=== PATIENT | male | born 1980 | race Caucasian/White ===

== ENCOUNTER 2022-05-02 13:21 | Emergency (ER) | payer SELFPAY ==
--- NOTE | 2022-05-02 15:41 | XRay Report ---
LEFT HAND 3 VIEW(S) INDICATION / CLINICAL INFORMATION: hand injury COMPARISON: 11/12/2015 FINDINGS: BONES / JOINT(S): There is fracture through the distal tuft of the distal phalanx of the left little finger. No significant arthritis. 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 SOFT TISSUES: There is extensive soft tissue injury at the distal left little finger with soft tissue gas and soft tissue swelling. No radiodense foreign bodies are seen. ADDITIONAL FINDINGS: None. IMPRESSION: 1. Laceration/penetrating trauma to the distal left little finger with associated fracture through th e tip of the distal phalanx and marked soft tissue irregularity. Signer Name: Norman Best MD Signed: 05/02/2022 3:37 PM Workstation Name: [id number]
[2022-05-02] MEDS ORDERED: ONDANSETRON 4 MG ODT TAB PO ONE (17:25)
[2022-05-02] MEDS ORDERED: SODIUM CHLORIDE 0.9% 500 ML 500 ML IV ONE (17:25)
[2022-05-02] MEDS ORDERED: HYDROcodone/ACETAMINOPHEN 5-325 MG TAB PO ONE (17:25)
[2022-05-02] MEDS ORDERED: LIDOCAINE (1%) 10 MG/1 ML VIAL 20 ML MDV INFILTRATI ONE (18:02)
[2022-05-02] MEDS ORDERED: SODIUM CHLORIDE IRRI 500 ML 500 ML IR ONE (18:10)
[2022-05-02] MEDS ORDERED: AMPICILLIN 500 MG in SODIUM CHLORIDE 0.9% 50 ML IV ONE (18:12)
[2022-05-02] MEDS ORDERED: SODIUM CHLORIDE 0.9% 500 ML IVPB IRRIGATION ONE (18:15)
[2022-05-02] MEDS ORDERED: AMPICILLIN/SULBACTA 3GM/100ML 3 GM/100 ML BAG IV ONE (19:00)
--- NOTE | 2022-05-02 20:15 | Emergency Department Report ---
ED General Adult HPI - General Chief complaint: Extremity Injury, Upper Stated complaint: LT HAND FINGER LAC Time Seen by Provider: 05/02/22 17:16 Source: patient Mode of arrival: Ambulatory Limitations: No Limitations - History of Present Illness Initial comments: Patient presents to the emergency department the chief complaint of left finger pain. Patient states that he was using a piece of machinery when he injured his fourth digit of his left hand. Patient denies the pain is throbbing in nature but states he can still move the finger without issue. -: Sudden Location: upper extremity Severity scale (0 -10): 7 Quality: aching, sharp Consistency: constant Improves with: rest Worsens with: movement Associated Symptoms: denies other symptoms Treatments Prior to Arrival: none - Related Data Previous Rx's Medication Instructions Recorded Last Taken Type Acetaminophen/Codeine [Tylenol #3] 1 tab PO Q6H PRN #20 tab 11/12/15 Unknown Rx Amoxicillin/K Clav Tab [Augmentin 1 tab PO Q12HR #20 tab 11/12/15 Unknown Rx 875 mg] Ibuprofen [Motrin] 800 mg PO Q8HR PRN #30 tablet 05/02/22 Unknown Rx cephALEXin [Keflex] 500 mg PO Q6HR #28 capsule 05/02/22 Unknown Rx Allergies Allergy/AdvReac Type Severity Reaction Status Date / Time No Known Allergies Allergy Verified 11/12/15 10:11 ED Review of Systems ROS: Stated complaint: LT HAND FINGER LAC Other details as noted in HPI Comment: All other systems reviewed and negative Constitutional: denies: chills, fever Eyes: denies: eye pain, eye discharge, vision change ENT: denies: ear pain, throat pain Respiratory: denies: cough, shortness of breath, wheezing Cardiovascular: denies: chest pain, palpitations Endocrine: no symptoms reported Gastrointestinal: denies: abdominal pain, nausea, diarrhea Genitourinary: denies: urgency, dysuria Musculoskeletal: denies: back pain, joint swelling, arthralgia Skin: denies: rash, lesions Neurological: denies: headache, weakness, paresthesias Psychiatric: denies: anxiety, depression Hematological/Lymphatic: denies: easy bleeding, easy bruising ED Past Medical Hx - Past Medical History Previous Medical History?: No - Surgical History Past Surgical History?: No - Social History Smoking Status: Never Smoker Substance Use Type: Alcohol - Medications Home Medications: Home Medications Medication Instructions Recorded Confirmed Last Taken Type Acetaminophen/Codeine [Tylenol #3] 1 tab PO Q6H PRN #20 tab 11/12/15 Unknown Rx Amoxicillin/K Clav Tab [Augmentin 1 tab PO Q12HR #20 tab 11/12/15 Unknown Rx 875 mg] Ibuprofen [Motrin] 800 mg PO Q8HR PRN #30 tablet 05/02/22 Unknown Rx cephALEXin [Keflex] 500 mg PO Q6HR #28 capsule 05/02/22 Unknown Rx ED Physical Exam - General Limitations: No Limitations General appearance: alert, in no apparent distress - Head Head exam: Present: atraumatic, normocephalic - Eye Eye exam: Present: normal appearance - ENT ENT exam: Present: mucous membranes moist - Neck Neck exam: Present: normal inspection - Respiratory Respiratory exam: Present: normal lung sounds bilaterally. Absent: respiratory distress - Cardiovascular Cardiovascular Exam: Present: regular rate, normal rhythm. Absent: systolic murmur, diastolic murmur, rubs, gallop - Rectal Rectal exam: Present: deferred - Extremities Exam Extremities exam: Present: other (Patient has an avulsion of the nail bed of the left fourth digit) - Back Exam Back exam: Present: normal inspection - Neurological Exam Neurological exam: Present: alert, oriented X3 - Psychiatric Psychiatric exam: Present: normal affect, normal mood - Skin Skin exam: Present: warm, dry, intact, normal color. Absent: rash ED Course Vital Signs 05/02/22 14:43 Temperature 98.4 F Pulse Rate 96 H Respiratory 18 Rate Blood Pressure 135/80 [Left] O2 Sat by Pulse 99 Oximetry - Laceration /Wound Repair Left Upper Hand Wound Location: upper extremity Wound's Depth, Shape: nail-avulsed Wound Explored: no foreign body removed Irrigated w/ Saline (ccs): 1,000 Betadine Prep?: Yes Anesthesia: 1% Lidocaine Wound Repaired With: sutures Suture Size/Type: 3:0, proline Number of Sutures: 3 Sterile Dressing Applied?: Yes Progress: The nail bed was tacked down with 3-0 Vicryl sutures ED Medical Decision Making - Radiology Data Radiology results: report reviewed - Medical Decision Making Patient's wound was soaked with Betadine and then saline for greater than 1 hour. 1000 cc of irrigation was done after soaking was completed. The wound and the surrounding area was cleaned thoroughly with chlorhexidine Discussed with patient importance of taking antibiotics that are prescribed and following up with orthopedics Critical care attestation.: If time is entered above; I have spent that time in minutes in the direct care of this critically ill patient, excluding procedure time. ED Disposition Clinical Impression: Open fracture of tuft of distal phalanx of finger, Injury of nail bed of finger of left hand Disposition: HOME / SELF CARE / HOMELESS Is pt being admited?: No Does the pt Need Aspirin: No Condition: Stable Instructions: Cast or Splint Care, Adult, [id number], Finger Fracture, Adult, Cast or Splint Care, Adult Additional Instructions: return if worse Prescriptions: cephALEXin [Keflex] 500 mg PO Q6HR #28 capsule Ibuprofen [Motrin] 800 mg PO Q8HR PRN #30 tablet PRN Reason: Pain, Moderate (4-6) Referrals: HARSHIL GLOVER MD [Staff Physician] - 3-5 Days Forms: Work/School Release Form(ED)
[2022-05-02 21:56] VITALS: BP 128/77
== END 2022-05-02 21:25 | disposition home or self-care (01) ==
LOC: ED 13:21
DX: S62.635A Displaced fracture of distal phalanx of left ring finger, initial encounter for closed fracture (principal); S61.309A Unspecified open wound of unspecified finger with damage to nail, initial encounter; X58.XXXA Exposure to other specified factors, initial encounter; Y93.89 Activity, other specified; Y92.89 Other specified places as the place of occurrence of the external cause; Y99.8 Other external cause status
CPT/HCPCS: 11760; 73130; 96361; 96365; 96366; 99283; J0295; J7040; J3490; Q0162